=== PATIENT | female | born 1950 | race Hispanic/Latino ===

== ENCOUNTER 2022-03-12 05:30 | Inpatient (IN) | payer MEDICARE ==
[2022-03-11 12:58] LABS: BASOPHILS % (AUTO) 0.4 % (0.0-5.0); EOSINOPHILS % (AUTO) 0.7 % (0.0-8.0); HEMATOCRIT 39.3 % (36-48); LYMPHOCYTES % (AUTO) 30.2 % (21.0-51.0); MEAN CORPUSCULAR HEMOGLOBIN 27.4 pg (27.0-33.0); MEAN CORPUSCULAR HGB CONC 32.3 g/dL (32.0-36.0); MEAN CORPUSCULAR VOLUME 84.7 fL (79-99); MONOCYTES % (AUTO) 8.5 % (3.0-13.0); NEUTROPHILS % (AUTO) 59.9 % (40.0-77.0); PLATELET COUNT (AUTO) 270 K/uL (130-400); RED BLOOD CELL COUNT(AUTO) 4.64 MIL/uL (4.00-5.50); RED CELL DISTRIBUTION WIDTH 15.3 % (11.0-15.5)
[2022-03-11 13:02] LABS: APPEARANCE,URINE Clear (CLEAR); BILIRUBIN,URINE Negative (NEGATIVE); COLOR,URINE Yellow (YELLOW); GLUCOSE, URINE (UA) Negative (NEGATIVE); KETONES,URINE Negative (NEGATIVE); LEUKOCYTE ESTERASE ,URINE Trace (NEGATIVE); NITRATE,URINE Negative (NEGATIVE); OCCULT BLOOD,URINE Negative (NEGATIVE); PH,URINE 7.5 (5.0-8.0); PROTEIN,URINE Negative (NEGATIVE); UROBILINOGEN,URINE 0.2 mg/dL (0.2-1.0)
[2022-03-11 13:05] LABS: BACTERIA,URINE Rare /HPF (None Seen); RBC,URINE 0-1 /HPF (0-1); SQUAMOUS EPITHELIAL CELL,UR Rare /HPF (0-2); WBC,URINE 0-1 /HPF (0-1)
[2022-03-11 13:10] LABS: INR 0.94 (0.85-1.15); PROTHROMBIN TIME 10.3 SEC (9.6-11.6)
[2022-03-11 13:11] LABS: PARTIAL THROMBOPLASTIN TIME 27.1 SEC (26.3-35.5)
[2022-03-11 14:01] VITALS: BP 153/67
[2022-03-12] VITALS (24 sets, daily range): BP systolic 81–150; BP diastolic 34–76
[~2022-03-12] VITALS: Ht 165.1 cm; Wt 75.4 kg
[~2022-03-12 05:30] MED LIST: ASCO100T12 PO; ATOR40TA71 PO; CEFAZOLIN SODIUM 3 GM in DEXTROSE 5%-WATER 100 ML IVP SCH; LISI40TA9 PO; VITAD50000 PO
[2022-03-12] MEDS ORDERED: LACTATED RINGERS 1000ML 1,000 ML IV ONE (06:22)
[2022-03-12] MEDS ORDERED: vitamin b PO (06:32)
[2022-03-12] MEDS: CEFAZOLIN SODIUM 1 GM VIAL ONE ×2 (06:33→08:40)
[2022-03-12] MEDS ORDERED: LIDOCAINE PF 100MG/5ML (2%) SYRINGE 5ML ONE (07:39)
[2022-03-12] MEDS ORDERED: SUCCINYLCHOLINE CHLORIDE 20 MG/ML 10 ML VIAL ONE (07:39)
[2022-03-12] MEDS ORDERED: MIDAZOLAM HCL 1 MG/ML 2ML VIAL ONE (07:39)
[2022-03-12] MEDS ORDERED: DEXAMETHASONE SOD PHOSPHATE 10MG/ML 1ML VIAL ONE (07:39)
[2022-03-12] MEDS ORDERED: ROCURONIUM 10MG/1ML SYR 10 MG/ML ML ONE (07:40)
[2022-03-12] MEDS ORDERED: NEOSTIGMINE 5MG/5ML SYR IV ONE (07:40)
[2022-03-12] MEDS ORDERED: PROPOFOL 10 MG/ML 20ML VIAL IV ONE (07:40)
[2022-03-12] MEDS ORDERED: ONDANSETRON 4MG INJ ONE ×2 (07:40→12:38)
[2022-03-12] MEDS ORDERED: GLYCOPYRROLATE 1 MG/5 ML SYRINGE ONE ×2 (07:40→11:35)
[2022-03-12] MEDS ORDERED: FENTANYL CITRATE PF 50 MCG/1 ML 2ML VIAL ONE ×3 (07:41→11:33)
[2022-03-12] MEDS ORDERED: PHENYLEPHRINE HCL 10 MG/ML 1ML VIAL IV ONE (09:29)
[2022-03-12] MEDS ORDERED: ALBUMIN (HUMAN) 5% 500 ML IV ONE (10:11)
[2022-03-12] MEDS ORDERED: EPHEDRINE SULFATE 50 MG/ML AMPULE ONE ×2 (11:42→13:15)
[2022-03-12] MEDS ORDERED: MEPERIDINE-PF 25 MG/ML SYG ONE (12:40)
[2022-03-12] MEDS ORDERED: CEFAZOLIN SODIUM 1 GM VIAL ONE (13:06)
[2022-03-12 13:30] LABS: HEMATOCRIT 24.7 % (36-48)
[2022-03-12] MEDS ORDERED: ACETAMINOPHEN WITH CODEINE 1 TAB TAB PO PRN (15:30)
[2022-03-12] MEDS ORDERED: ONDANSETRON 4MG INJ IVP PRN (15:30)
[2022-03-12] MEDS ORDERED: IBUPROFEN 600 MG TABLET PO PRN (15:30)
[2022-03-12] MEDS ORDERED: MEPERIDINE-PF 75 MG/ML SYG IM PRN (15:30)
[2022-03-12] MEDS ORDERED: BISACODYL 10 MG SUPP.RECT RC PRN (15:30)
[2022-03-12] MEDS ORDERED: PROMETHAZINE HCL 25 MG/ML 1ML AMPULE IM PRN ×2 (15:30)
[2022-03-12] MEDS ORDERED: SIMETHICONE 80 MG TAB.CHEW PO PRN (15:30)
[2022-03-12] MEDS: DEXTROSE 5 %-0.45 % NACL 1,000 ML IV PRN (18:38)
[2022-03-13] MEDS: DEXTROSE 5 %-0.45 % NACL 1,000 ML IV PRN (02:35)
[2022-03-13 03:39] VITALS: BP 118/58
[2022-03-13 06:31] LABS: HEMATOCRIT 23.5 % (36-48); MEAN CORPUSCULAR HEMOGLOBIN 27.3 pg (27.0-33.0); MEAN CORPUSCULAR HGB CONC 33.2 g/dL (32.0-36.0); MEAN CORPUSCULAR VOLUME 82.2 fL (79-99); RED BLOOD CELL COUNT(AUTO) 2.86 MIL/uL (4.00-5.50); WHITE BLOOD COUNT (AUTO) 17.2 K/uL (4.8-10.8)
[2022-03-13 07:30] VITALS: BP 109/54
[2022-03-13] MEDS: DOCUSATE SODIUM 100 MG CAP PO PRN ×2 (09:20→21:06)
[2022-03-13] MEDS: NITROFURANTOIN MONOHYD/M-CRYST 100 MG CAPSULE PO SCH ×2 (09:22→21:06)
[2022-03-13 11:46] VITALS: BP 113/57
[2022-03-13] MEDS ORDERED: ACETAMINOPHEN WITH CODEINE 1 TAB TAB PO PRN (16:00)
[2022-03-13] MEDS: SIMETHICONE 80 MG TAB.CHEW PO PRN ×3 (16:29→21:06)
[2022-03-13] MEDS: FERROUS SULFATE 325 MG TABLET.DR PO SCH ×2 (16:29→17:00)
[2022-03-13] MEDS: IBUPROFEN 600 MG TABLET PO PRN (16:31)
[2022-03-13 16:59] VITALS: BP 116/59
[2022-03-13 19:22] VITALS: BP 122/55
[2022-03-13 23:03] VITALS: BP 113/60
[2022-03-14 03:20] VITALS: BP 104/57
[2022-03-14 06:29] LABS: HEMATOCRIT 24.1 % (36-48)
[2022-03-14 07:40] VITALS: BP 126/66
[2022-03-14] MEDS: DOCUSATE SODIUM 100 MG CAP PO PRN (08:30)
[2022-03-14] MEDS: NITROFURANTOIN MONOHYD/M-CRYST 100 MG CAPSULE PO SCH (08:30)
[2022-03-14] MEDS: SIMETHICONE 80 MG TAB.CHEW PO PRN (08:30)
[2022-03-14] MEDS: FERROUS SULFATE 325 MG TABLET.DR PO SCH ×2 (08:30→12:12)
[2022-03-14] MEDS: IBUPROFEN 600 MG TABLET PO PRN (08:32)
[2022-03-14 11:36] VITALS: BP 117/59
== END 2022-03-14 13:10 | disposition home or self-care (01) | DRG 743 ==
LOC: DAH 05:30 → WSH 05:31
PROVIDERS: ADMIT Obstetrics & Gynecology; ATTEND Obstetrics & Gynecology
PROC: 0UBG4ZZ Excision of Vagina, Percutaneous Endoscopic Approach (ICD-10-PCS; 2022-03-12)
PROC: 0JQC0ZZ Repair Pelvic Region Subcutaneous Tissue and Fascia, Open Approach (ICD-10-PCS; 2022-03-12)
PROC: 0JQC0ZZ Repair Pelvic Region Subcutaneous Tissue and Fascia, Open Approach (ICD-10-PCS; 2022-03-12)
PROC: 0UT9FZZ Resection of Uterus, Via Natural or Artificial Opening With Percutaneous Endoscopic Assistance (ICD-10-PCS; principal; 2022-03-12 08:17)
PROC: 0UT2FZZ Resection of Bilateral Ovaries, Via Natural or Artificial Opening With Percutaneous Endoscopic Assistance (ICD-10-PCS; 2022-03-12 08:17)
PROC: 0UB77ZZ Excision of Bilateral Fallopian Tubes, Via Natural or Artificial Opening (ICD-10-PCS; 2022-03-12 08:17)
PROC: 0T9B40Z Drainage of Bladder with Drainage Device, Percutaneous Endoscopic Approach (ICD-10-PCS; 2022-03-12 08:17)
DX: D25.9 Leiomyoma of uterus, unspecified (principal); N81.3 Complete uterovaginal prolapse; N81.6 Rectocele
CPT/HCPCS: 36415; 81001; 85014; 85018; 85025; 85027; 85610; 85730; 86850; 86900; 86901; 87635; C9803; G0378; J0330; J0690; J1100; J2001; J2175; J2250; J2370; J2405; J2704; J2710; J3010; J3490; J7120; P9045